=== PATIENT | female | born 1940 ===

== ENCOUNTER 2018-10-06 12:32 | Emergency (ER) | payer OTHER ==
[~2018-10-06] VITALS: Ht 160 cm; Wt 56.7 kg
== END 2018-10-07 09:45 | disposition home or self-care (01) ==
LOC: ER 12:32
DX: K52.89 Other specified noninfective gastroenteritis and colitis (principal)

== ENCOUNTER 2020-07-04 07:49 | Outpatient (CLI) | payer OTHER | END 2020-07-04 08:12 | disposition home or self-care (01) | LOC: SONOGRAMA 07:49 | PROVIDERS: ATTEND Internal Medicine | DX: R31.9 Hematuria, unspecified (principal) ==

== ENCOUNTER 2023-09-25 09:52 | Outpatient (CLI) | payer OTHER | END 2023-09-25 10:04 | disposition home or self-care (01) | LOC: SONOGRAMA 09:52 | PROVIDERS: ATTEND General Practice | DX: M17.9 Osteoarthritis of knee, unspecified (principal); S83.242A Other tear of medial meniscus, current injury, left knee, initial encounter ==